=== PATIENT | male | born 1950 | race Caucasian/White ===

== ENCOUNTER 2022-03-26 15:52 | Emergency (ER) | payer MEDICARE | END 2022-03-26 17:01 | disposition home or self-care (01) | LOC: CSHERS 15:52 | DX: R20.0 Anesthesia of skin (principal); T46.4X5A Adverse effect of angiotensin-converting-enzyme inhibitors, initial encounter; M19.90 Unspecified osteoarthritis, unspecified site; E78.5 Hyperlipidemia, unspecified; E78.00 Pure hypercholesterolemia, unspecified; I10 Essential (primary) hypertension | CPT/HCPCS: 99283 ==